=== PATIENT | male | born 1990 | race Caucasian/White ===

== ENCOUNTER 2017-04-04 00:25 | Emergency (ER) | payer MEDICAID ==
[2017-04-04 00:56] LABS: % IMMATURE GRANULYOCYTES 0.8 % (0.0-1.1); ABSOLUTE IMMATURE GRANULOCYTES 0.08 10^3/uL (0.00-0.10); ADD DIFF? NO; ADD MORPH? NO; ADD SCAN? NO; ATYPICAL LYMPHOCYTE FLAG 0 (0-99); FRAGMENT RBC FLAG 0 (0-99); HEMATOCRIT 45.4 % (40.0-51.0); HEMOGLOBIN 15.7 g/dL (13.7-17.5); LEFT SHIFT FLG 0 (0-99); LIPEMIA HEMOLYSIS FLAG 90 (0-99); MEAN CELL HEMOGLOBIN 31.5 pg (27.9-34.1); MEAN CELL HEMOGLOBIN CONCENTR. 34.6 g/dL (32.4-36.7); MEAN CELL VOLUME 91.2 fL (81.5-99.8); PLATELET CLUMPS FLAG 0 (0-99); PLATELET COUNT 259 10^3/uL (150-400); RED BLOOD CELL COUNT 4.98 10^6/uL (4.40-6.38); RED CELL DISTRIBUTION WIDTH 11.4 % (11.5-15.2)
[2017-04-04 00:58] LABS: ANION GAP 11 mEq/L (8-16); CALCIUM 9.6 mg/dL (8.5-10.4); CARBON DIOXIDE 28 mEq/l (22-31); CHLORIDE 104 mEq/L (97-110); CREATININE 1.2 mg/dL (0.7-1.3); ETHANOL SERUM 49 mg/dL (0-10); GLOMERULAR FILTRATION RATE > 60; GLUCOSE 88 mg/dL (70-100); POTASSIUM 3.7 mEq/L (3.5-5.2); SODIUM 143 mEq/L (134-144)
--- NOTE | 2017-04-04 02:23 | EDPHY ---
H & P Stated Complaint: attempted SI attempt by cutting left arm with Knife - Personal History Current Tetanus Diphtheria and Acellular Pertussis (TDAP): Yes Tetanus Vaccine Date: <10YRS - Medical/Surgical History Hx Asthma: No Hx Chronic Respiratory Disease: No Hx Diabetes: No Hx Cardiac Disease: No Hx Renal Disease: No Hx Cirrhosis: No Hx Alcoholism: No Hx HIV/AIDS: No Hx Splenectomy or Spleen Trauma: No Other PMH: unobtainable - Social History Smoking Status: Never smoked HPI/ROS: Chief complaint: Suicidal ideation with attempt, on mental health hold History of present illness: This is a 27-year-old male brought to the emergency department by EMS for suicidal ideation with an attempt by cutting his left wrist. Police have placed him on a mental health hold. Patient reports he has struggled with mental health issues including depression for some time. He was feeling suicidal tonight and attempted to cut himself, he states initially this was an attempt to kill himself. He denies homicidal ideation. He denies illness. No injury beyond cuts the left arm. He denies abnormal coolness or paresthesias in the arm. He states he is moving the left upper extremity without difficulty. His tetanus is up-to-date. Review of systems: A 10 point review of systems was obtained and other than described above was negative (Ramírez Nugent) - Physical Exam Exam: General Appearance: Alert, nontoxic. Eyes: Pupils equal and round no pallor or injection. ENT, Mouth: Mucous membranes moist. Respiratory: There are no retractions, lungs are clear to auscultation. Cardiovascular: Regular rate and rhythm. Radial pulses 2+ bilaterally. Capillary refill brisk in the left hand. Gastrointestinal: Abdomen is soft and nontender, no masses, bowel sounds normal. Neurological: Alert and oriented x4. Strength and sensation intact and symmetrical. Sensation is intact in the left upper extremity. Skin: Multiple lacerations to the left upper extremity. Musculoskeletal: Neck is supple nontender. Patient is moving the left upper extremity well including the digits, wrist and elbow in all phillips without difficulty. There is good strength. Psychiatric: Patient is oriented X 3, there is no agitation. (Ramírez Nugent) Constitutional: Initial Vital Signs Temperature (C) 37.2 C 04/04/17 00:40 Heart Rate 80 04/04/17 00:40 Respiratory Rate 16 04/04/17 00:40 Blood Pressure 156/90 H 04/04/17 00:40 O2 Sat (%) 96 04/04/17 00:40 O2 Delivery Mode Room Air Allergies/Adverse Reactions: No Known Allergies Allergy (Verified 07/07/16 11:12) Home Medications: Medication Instructions Recorded Dextroamphetamine/Amphetamine 10 mg PO DAILY 04/04/17 [Adderall Xr 10 mg Capsule] Dextroamphetamine/Amphetamine 30 mg PO DAILY 04/04/17 [Adderall Xr 30 mg Capsule] Medical Decision Making Procedures: Procedure: Laceration repair. Verbal consent was obtained from the patient. A total of 20 cm in length lacerations to the left upper extremity were anesthetized in the usual fashion. The wounds were irrigated, draped and explored to their base with a gloved finger. There were no deep structures involved. No tendon injury was identified. The wounds were repaired with a combination of 4 0 in 5 0 Ethilon, 35 simple interrupted sutures. The wound repairs were simple. The procedure was performed by myself. (Ramírez Nugent) ED Course/Re-evaluation: Patient seen under the supervision of my secondary supervising physician Dr. Birgit Mills. Patient presents to the emergency department with EMS for suicidal ideation with an attempt by cutting his left arm. Police have placed him on a mental health hold. He is nontoxic. Lacerations to the left arms have been cleaned, repaired and dressed. His arm is neurovascularly intact, he does appear to have good musculoskeletal control of the arm. Patient is subsequently medically cleared for psychiatric evaluation. This is pending at time of dictation. Care of patient is turned over to my attending physician Dr. Mills at end of shift. (Ramírez Nugent) 5:55 a.m.- The patient has remained stable during my shift. He was evaluated by EPS. He is not suicidal currently and says that this was not a suicide attempt. They will reassess him later this morning. (Birgit Mills) 7am: I assumed care of this pt at shift change. Awaiting disposition. [facility] (Kristine Tenorio) Differential Diagnosis: Included but not limited to anxiety, depression, bipolar, schizophrenia, substance abuse (Ramírez Nugent) Other Provider: PHYSICIAN DOCUMENTATION: The patient was evaluated and managed by the Physician Third [facility]. My co- signature indicates that I have reviewed this chart and I agree with the findings and plan of care as documented. I am the secondary supervising physician. (Birgit Mills) - Data Points Laboratory Results: Laboratory Results 04/04/17 00:32 04/04/17 00:32 04/04/17 01:45 Urine Opiates Screen NEGATIVE (NEGATIVE) Urine Barbiturates NEGATIVE (NEGATIVE) Ur Phencyclidine Scrn NEGATIVE (NEGATIVE) Ur Amphetamine Screen NEGATIVE (NEGATIVE) U Benzodiazepines Scrn NEGATIVE (NEGATIVE) Urine Cocaine Screen NEGATIVE (NEGATIVE) U Marijuana (THC) Screen NEGATIVE (NEGATIVE) Medications Given: Discontinued Medications Acetaminophen (Tylenol) 1,000 mg PO EDNOW ONE Stop: 04/04/17 03:43 Last Admin: 04/04/17 03:43 Dose: 1,000 mg Acetaminophen (Tylenol) 1,000 mg PO EDNOW ONE Stop: 04/04/17 09:00 Last Admin: 04/04/17 09:00 Dose: 1,000 mg Ibuprofen (Motrin) 400 mg PO EDNOW ONE Stop: 04/04/17 03:43 Last Admin: 04/04/17 03:43 Dose: 400 mg Ibuprofen (Motrin) 600 mg PO ONCE ONE Stop: 04/04/17 09:00 Last Admin: 04/04/17 08:59 Dose: 600 mg Lorazepam (Ativan) 2 mg PO EDNOW ONE Stop: 04/04/17 02:39 Last Admin: 04/04/17 02:39 Dose: 2 mg Lorazepam (Ativan) 1 mg PO EDNOW ONE Stop: 04/04/17 08:44 Last Admin: 04/04/17 08:58 Dose: 1 mg Lorazepam (Ativan) 1 mg PO EDNOW ONE Stop: 04/04/17 09:07 Last Admin: 04/04/17 09:15 Dose: 1 mg Departure - Departure Clinical Impression: Suicidal ideation Arm laceration Qualifiers: Encounter type: initial encounter Laterality: left Qualified Code(s): S41.112A - Laceration without foreign body of left upper arm, initial encounter Condition: Good Additional Instructions: Follow-up with a hand doctor for further evaluation and care Referrals: Babita Hansen PAC [Primary Care Provider] - As per Instructions Chalo Elizondo MD [Medical Doctor] - As per Instructions
[2017-04-04] MEDS ORDERED: LORazepam 1 MG TAB ONE ×3 (02:31→15:47)
[2017-04-04] MEDS ORDERED: LORazepam 1 MG TAB PO ONE ×4 (02:38→15:52)
[2017-04-04] MEDS ORDERED: IBUPROFEN 200 MG TAB PO ONE ×2 (03:24→03:42)
[2017-04-04] MEDS ORDERED: ACETAMINOPHEN 500 MG TAB ONE ×2 (03:24→08:52)
[2017-04-04] MEDS ORDERED: ACETAMINOPHEN 500 MG TAB PO ONE ×2 (03:42→08:59)
[2017-04-04] MEDS ORDERED: IBUPROFEN 600 MG TAB PO ONE ×2 (08:52→08:59)
[2017-04-04] MEDS ORDERED: buPROPion 100 MG TAB PO SCH (09:00)
[2017-04-04] MEDS ORDERED: ADDERALL 10 MG TAB PO SCH (09:15)
[2017-04-04 15:21] VITALS: BP 131/73; PULSE 72; RESP 20; TEMP 98.6; O2SAT 97
== END 2017-04-04 16:45 ==
LOC: EDUNIT#
PROC: 0HQCXZZ Repair Left Upper Arm Skin, External Approach (ICD-10-PCS; principal; 2017-04-04)
DX: S41.112A Laceration without foreign body of left upper arm, initial encounter (principal); T14.91 Suicide attempt; X78.1XXA Intentional self-harm by knife, initial encounter
CPT/HCPCS: 80305; G0480